=== PATIENT | female | born 1965 | race Two or more races ===

== ENCOUNTER 2018-01-08 22:06 | Emergency (ER) | payer SELFPAY ==
[~2018-01-08] VITALS: Ht 157.5 cm; Wt 71.7 kg
[2018-01-08 22:08] VITALS: BP_SYST 116
[2018-01-08] MEDS ORDERED: LORazepam 1 MG TABLET PO ONE (22:30)
[2018-01-08] MEDS ORDERED: ASPIRIN 325 MG TABLET PO ONE (22:30)
[2018-01-08 22:48] LABS: ANION GAP 8 (5-15); CALCIUM 9.2 mg/dL (8.4-11.0); CHLORIDE 104 mmol/L (98-107); CREATININE 0.52 mg/dL (0.55-1.30); GLUCOSE 99 mg/dL (70-99); HEMATOCRIT 35.8 % (36-48); HEMOGLOBIN 12.3 g/dL (12.0-16.0); MEAN CORPUSCULAR HEMOGLOBIN 30 pg (27-31); MEAN CORPUSCULAR HGB CONC 34 % (32-36); MEAN CORPUSCULAR VOLUME 89 fL (79.0-98.0); PLATELET COUNT (AUTO) 183 K/uL (130-430); POTASSIUM 3.6 mmol/L (3.5-5.1); RED BLOOD CELL COUNT(AUTO) 4.04 MIL/uL (4.2-6.2); RED CELL DISTRIBUTION WIDTH 13.2 % (9.0-15.0); SODIUM SERUM 139 mmol/L (136-145); UREA NITROGEN, BLOOD 17 mg/dL (8-21); WHITE BLOOD COUNT (AUTO) 4.2 K/uL (4.8-10.8)
[2018-01-08 22:54] LABS: GFR AFRICAN AMERICAN 161 mL/min (>90)
[2018-01-08 22:55] LABS: ALANINE AMINOTRANSFERASE 22 U/L (12-78); ALBUMIN 3.8 g/dL (3.4-4.8); ASPARTATE AMINOTRANSFERASE 15 U/L (10-37); TOTAL BILIRUBIN 0.4 mg/dL (0.0-1.0)
[2018-01-08 23:12] LABS: BASOPHILS % (MANUAL) 0 % (0-2); EOSINOPHILS % (MANUAL) 0 % (0-7); LYMPHOCYTES % (MANUAL) 40 % (20-46); MONOCYTES % (MANUAL) 16 % (0-11)
[2018-01-08] MEDS ORDERED: MAG HYDROX/AL HYDROX/SIMETH 30 ML, BELLADONNA ALKALOIDS/PHENOBARB 10 ML, LIDOCAINE VISC... PO ONE ×3 (23:15)
[2018-01-08 23:17] LABS: BILIRUBIN,URINE NEGATIVE (NEGATIVE); CLARITY/URINE CLEAR (CLEAR); GLUCOSE,URINE NEGATIVE (NEGATIVE); KETONES,URINE NEGATIVE (NEGATIVE); LEUKOCYTE ESTERASE ,URINE TRACE (NEGATIVE); NITRITE, URINE NEGATIVE (NEGATIVE); PROTEIN URINE NEGATIVE (NEGATIVE); UROBILINOGEN,URINE 0.2 (0.2-1.0)
[2018-01-08 23:22] LABS: BLOOD, URINE TRACE (NEGATIVE); COLOR,URINE STRAW (YELLOW)
[2018-01-08 23:28] LABS: BACTERIA,URINE FEW /HPF (None Seen); RBC,URINE 0-3 /HPF (0-3)
[2018-01-08 23:33] LABS: BARBITURATE, URINE NEGATIVE (NEG <=200); BENZODIAZEPINE, URINE NEGATIVE (NEG <=150); CANNABINOID, URINE NEGATIVE (NEG <=50); COCAINE, URINE NEGATIVE (NEG <=150); METHAMPHETAMINES SCREEN,URINE NEGATIVE (NEG <=500); OPIATE, URINE NEGATIVE (NEG <=100); PHENCYCLIDINE SCREEN,URINE NEGATIVE (NEG <=25); UR TRICYCLIC ANTIDEPRESSANTS NEGATIVE (NEG <=300); URINE AMPHETAMINE NEGATIVE (NEG <=500); URINE METHADONE NEGATIVE (NEG <=200); URINE OXYCODONE SCREEN NEGATIVE (NEG <=100); URINE PROPOXYPHENE SCREEN NEGATIVE (NEG <=300)
[2018-01-08] MEDS ORDERED: CALCIUM CARBONATE 500 MG/ TAB.CHEW PO ONE (23:45)
[2018-01-09] MEDS ORDERED: KETOROLAC TROMETHAMINE 30 MG VIAL IM ONE
[2018-01-09] MEDS ORDERED: CALCIUM 600/VIT D ONE (00:08)
[2018-01-09 00:32] VITALS: BP_SYST 106
== END 2018-01-09 00:32 | disposition home or self-care (01) ==
LOC: SED 22:06
DX: F41.9 Anxiety disorder, unspecified (principal); R07.89 Other chest pain; K21.9 Gastro-esophageal reflux disease without esophagitis
CPT/HCPCS: 36415; 71045; 80053; 80307; 81000; 84484; 85007; 85027; 85379; 87086; 93005; 96372; 99285; J1885; J2001